=== PATIENT | female | born 1985 | race Caucasian/White ===

== ENCOUNTER 2017-01-21 20:39 | Emergency (ER) | payer SELFPAY | END 2017-01-21 22:14 | disposition left against medical advice (07) | LOC: D.ER 20:39 | DX: M25.572 Pain in left ankle and joints of left foot (principal) ==

== ENCOUNTER 2018-06-02 17:00 | Emergency (ER) | payer SELFPAY ==
[~2018-06-02] VITALS: Ht 167.6 cm; Wt 101.8 kg
[2018-06-02 17:10] VITALS: Ht 167.6 cm; Wt 101.8 kg
[2018-06-02 17:28] LABS: BASOPHILS 0.1 % (0-2); EOSINOPHILS 3.1 % (0-7); HEMATOCRIT 38.1 % (36.0-48.0); HEMOGLOBIN 12.7 g/dL (12-16); IMMATURE GRANULOCYTES 0.2 % (0-5); LYMPHOCYTES 29.8 % (15-50); MCH 28.4 pg (26.0-34.0); MCHC 33.3 g/dL (31.0-37.0); MCV 85.2 fL (80.0-100.0); MEAN PLATELET VOLUME 10.1 fL (7.4-10.4); MONOCYTES 7.8 % (2-11); PLATELET COUNT 270 10x3/uL (130-400); RBC 4.47 10x6/uL (4.00-5.40); RDW 13.5 % (11.5-14.5); WBC 9.8 10x3/uL (4.8-10.8)
[2018-06-02 17:45] LABS: ALBUMIN 2.9 g/dL (3.4-5.0); ALKALINE PHOSPHATASE 61 U/L (46-116); ALT (SGPT) 36 U/L (10-68); BILIRUBIN - TOTAL 0.38 mg/dL (0.2-1.3); CALC OSMOLALITY 279 mosm/kg (275-300); CALCIUM 7.9 mg/dL (8.5-10.1); CHLORIDE - SERUM 107 mmol/L (98-107); CREATININE - SERUM 0.8 mg/dL (0.6-1.3); GLUCOSE 96 mg/dL (74-106); PROTEIN - SERUM 6.4 g/dL (6.4-8.2); SODIUM 141 mmol/L (136-145); UREA NITROGEN 10 mg/dL (7-18); eGFR NON AFRICAN AMERICAN 86 mL/min (90-120)
[2018-06-02 17:49] LABS: AMYLASE - SERUM 52 U/L (25-115); LIPASE 138 U/L (73-393)
[2018-06-02 17:52] LABS: TROPONIN-I < 0.017 ng/mL (0.000-0.060)
[2018-06-02 18:18] LABS: APPEARANCE CLEAR (CLEAR); BILIRUBIN NEGATIVE (NEGATIVE); COLOR YELLOW (YELLOW); GLUCOSE NEGATIVE (NEGATIVE); KETONE NEGATIVE (NEGATIVE); NITRITE NEGATIVE (NEGATIVE); PROTEIN NEGATIVE (NEGATIVE); UROBILINOGEN NORMAL (NORMAL)
[2018-06-02] MEDS ORDERED: LOMOTIL 2.5-0.1 EAC1 PO (19:54)
[2018-06-02 20:13] VITALS: BP 129/72
[2018-06-02 20:16] LABS: HCG URINE NEGATIVE (NEGATIVE)
== END 2018-06-02 20:13 | disposition home or self-care (01) ==
LOC: D.ER 17:00
PROVIDERS: Emergency Medicine
DX: A08.4 Viral intestinal infection, unspecified (principal); F17.200 Nicotine dependence, unspecified, uncomplicated

== ENCOUNTER 2018-10-25 21:17 | Emergency (ER) | payer SELFPAY ==
[~2018-10-25] VITALS: Ht 167.6 cm; Wt 104.5 kg
[~2018-10-25 21:17] MED LIST: LOMOTIL 2.5-0.1 EAC1 PO
[2018-10-25 21:22] VITALS: Ht 167.6 cm; Wt 104.5 kg
[2018-10-25] MEDS ORDERED: PEPCID AC20 MG PO (21:25)
[2018-10-25] MEDS ORDERED: ATIVAN1 MG (21:25)
[2018-10-25] MEDS ORDERED: ROBAXIN500 MG PO (21:26)
[2018-10-25] MEDS ORDERED: NAPROSYN500 MG PO (22:36)
[2018-10-25 23:03] VITALS: BP 135/89
== END 2018-10-25 23:05 | disposition home or self-care (01) ==
LOC: D.ER 21:17
DX: S63.501A Unspecified sprain of right wrist, initial encounter (principal); W18.30XA Fall on same level, unspecified, initial encounter; Y93.89 Activity, other specified; Y92.019 Unspecified place in single-family (private) house as the place of occurrence of the external cause

== ENCOUNTER 2019-03-10 22:41 | Emergency (ER) | payer MEDICAID ==
[~2019-03-10] VITALS: Ht 167.6 cm; Wt 102.3 kg
[~2019-03-10 22:41] MED LIST changes: +ATIVAN1 MG; +NAPROSYN500 MG PO; +PEPCID AC20 MG PO; +ROBAXIN500 MG PO
[2019-03-10 22:46] VITALS: Ht 167.6 cm; Wt 102.3 kg
[2019-03-10 23:01] LABS: BASOPHILS 0.4 % (0-2); EOSINOPHILS 4.4 % (0-7); HEMATOCRIT 37.9 % (36.0-48.0); HEMOGLOBIN 12.7 g/dL (12-16); IMMATURE GRANULOCYTES 0.1 % (0-5); LYMPHOCYTES 41.1 % (15-50); MCH 27.5 pg (26.0-34.0); MCHC 33.5 g/dL (31.0-37.0); MEAN PLATELET VOLUME 10.3 fL (7.4-10.4); MONOCYTES 7.6 % (2-11); NEUTROPHILS 46.4 % (40-80); PLATELET COUNT 231 10x3/uL (130-400); RBC 4.62 10x6/uL (4.00-5.40); RDW 12.9 % (11.5-14.5); WBC 7.1 10x3/uL (4.8-10.8)
[2019-03-10 23:18] LABS: ALBUMIN 3.2 g/dL (3.4-5.0); ALKALINE PHOSPHATASE 84 U/L (46-116); ALT (SGPT) 28 U/L (10-68); BILIRUBIN - TOTAL 0.56 mg/dL (0.2-1.3); CALC OSMOLALITY 282 mosm/kg (275-300); CALCIUM 8.3 mg/dL (8.5-10.1); CHLORIDE - SERUM 107 mmol/L (98-107); CREATININE - SERUM 0.9 mg/dL (0.6-1.3); GLUCOSE 110 mg/dL (74-106); POTASSIUM - SERUM 3.7 mmol/L (3.5-5.1); PROTEIN - SERUM 6.7 g/dL (6.4-8.2); SODIUM 142 mmol/L (136-145); UREA NITROGEN 11 mg/dL (7-18); eGFR NON AFRICAN AMERICAN 75 mL/min (90-120)
[2019-03-10 23:21] LABS: AMYLASE - SERUM 41 U/L (25-115); LIPASE 128 U/L (73-393)
[2019-03-10 23:22] LABS: TROPONIN-I < 0.017 ng/mL (0.000-0.060)
[2019-03-11 00:37] LABS: APPEARANCE HAZY (CLEAR); COLOR YELLOW (YELLOW)
[2019-03-11 00:38] LABS: HCG URINE NEGATIVE (NEGATIVE)
[2019-03-11 00:38] LABS: BACTERIA FEW /hpf (NONE SEEN); BILIRUBIN NEGATIVE (NEGATIVE); GLUCOSE NEGATIVE (NEGATIVE); KETONE NEGATIVE (NEGATIVE); NITRITE NEGATIVE (NEGATIVE); PROTEIN NEGATIVE (NEGATIVE); RED CELLS - URINE NONE SEEN /hpf (0-5); UROBILINOGEN NORMAL (NORMAL); WHITE CELLS - URINE 25-50 /hpf (0-5)
[2019-03-11 01:01] VITALS: BP 132/71
== END 2019-03-11 01:01 | disposition home or self-care (01) ==
LOC: D.ER 22:41
PROVIDERS: Family Medicine
DX: G43.909 Migraine, unspecified, not intractable, without status migrainosus (principal)

== ENCOUNTER 2019-03-20 11:55 | Emergency (ER) | payer MEDICAID ==
[~2019-03-20] VITALS: Ht 167.6 cm; Wt 110.9 kg
[2019-03-20 12:09] VITALS: Ht 167.6 cm; Wt 110.9 kg
[2019-03-20 12:53] LABS: BASOPHILS 0.2 % (0-2); EOSINOPHILS 3.5 % (0-7); HEMOGLOBIN 12.6 g/dL (12-16); IMMATURE GRANULOCYTES 0.1 % (0-5); LYMPHOCYTES 26.6 % (15-50); MCH 27.6 pg (26.0-34.0); MCHC 33.2 g/dL (31.0-37.0); MCV 83.2 fL (80.0-100.0); MEAN PLATELET VOLUME 10.4 fL (7.4-10.4); MONOCYTES 8.7 % (2-11); NEUTROPHILS 60.9 % (40-80); PLATELET COUNT 258 10x3/uL (130-400); RBC 4.57 10x6/uL (4.00-5.40); WBC 8.6 10x3/uL (4.8-10.8)
[2019-03-20 13:08] LABS: ALBUMIN 3.5 g/dL (3.4-5.0); ALKALINE PHOSPHATASE 95 U/L (46-116); ALT (SGPT) 43 U/L (10-68); BILIRUBIN - TOTAL 0.51 mg/dL (0.2-1.3); CALC OSMOLALITY 280 mosm/kg (275-300); CALCIUM 9.1 mg/dL (8.5-10.1); CARBON DIOXIDE 25.2 mmol/L (21.0-32.0); CHLORIDE - SERUM 104 mmol/L (98-107); CREATININE - SERUM 0.8 mg/dL (0.6-1.3); GLUCOSE 98 mg/dL (74-106); POTASSIUM - SERUM 4.1 mmol/L (3.5-5.1); PROTEIN - SERUM 7.5 g/dL (6.4-8.2); SODIUM 139 mmol/L (136-145); UREA NITROGEN 21 mg/dL (7-18); eGFR NON AFRICAN AMERICAN 86 mL/min (90-120)
[2019-03-20] MEDS ORDERED: ZOFRAN ODT4 MG/UDTAB PO (13:36)
[2019-03-20 14:07] VITALS: BP 129/89
[2019-04-05] MEDS ORDERED: KEFLEX500 MG PO (08:05)
[2019-04-05] MEDS ORDERED: MACROBID100 MG PO (08:05)
== END 2019-03-20 14:07 | disposition home or self-care (01) ==
LOC: D.ER 11:55
PROVIDERS: Emergency Medicine
DX: R11.10 Vomiting, unspecified (principal)

== ENCOUNTER 2019-03-31 20:42 | Emergency (ER) | payer MEDICAID ==
[~2019-03-31] VITALS: Ht 167.6 cm; Wt 109.5 kg
[~2019-03-31 20:42] MED LIST changes: +ZOFRAN ODT4 MG/UDTAB PO
[2019-03-31 20:48] VITALS: Ht 167.6 cm; Wt 109.5 kg
[2019-03-31 23:50] VITALS: BP 124/67
[2019-04-05] MEDS ORDERED: MACROBID100 MG PO (08:05)
[2019-04-05] MEDS ORDERED: KEFLEX500 MG PO (08:05)
== END 2019-03-31 23:42 | disposition home or self-care (01) ==
LOC: D.ER 20:42
DX: G43.909 Migraine, unspecified, not intractable, without status migrainosus (principal)

== ENCOUNTER 2019-04-05 21:48 | Emergency (ER) | payer MEDICAID ==
[~2019-04-05] VITALS: Ht 167.6 cm; Wt 111.0 kg
[~2019-04-05 21:48] MED LIST changes: +KEFLEX500 MG PO; +MACROBID100 MG PO
[2019-04-05 22:20] VITALS: Ht 167.6 cm; Wt 111.0 kg
[2019-04-06] MEDS ORDERED: DOXYCYCLINE HY100 M2 PO (00:22)
[2019-04-06] MEDS ORDERED: VALTREX1000 MG PO (00:22)
[2019-04-06 00:55] VITALS: BP 132/88
== END 2019-04-06 00:55 | disposition home or self-care (01) ==
LOC: D.ER 21:48
PROVIDERS: Family Medicine
DX: L02.212 Cutaneous abscess of back [any part, except buttock and flank] (principal)

== ENCOUNTER 2019-04-30 20:34 | Emergency (ER) | payer MEDICAID ==
[~2019-04-30] VITALS: Ht 167.6 cm; Wt 111.8 kg
[~2019-04-30 20:34] MED LIST changes: +DOXYCYCLINE HY100 M2 PO; +VALTREX1000 MG PO
[2019-04-30 21:08] VITALS: Ht 167.6 cm; Wt 111.8 kg
[2019-04-30] MEDS ORDERED: PROZAC40 MG PO (21:10)
[2019-04-30] MEDS ORDERED: NEURONTIN 300300 MG PO (21:11)
[2019-04-30] MEDS ORDERED: BUTALB-APAP-CA1 EACH PO (22:19)
[2019-04-30] MEDS ORDERED: ZOFRAN8 MG PO (22:19)
[2019-04-30 22:58] VITALS: BP 124/49
== END 2019-04-30 22:59 | disposition home or self-care (01) ==
LOC: D.ER 20:34
DX: G43.909 Migraine, unspecified, not intractable, without status migrainosus (principal)

== ENCOUNTER → 2019-06-15 07:09 | Outpatient (CLI) | payer MEDICAID ==
[2019-04-30 21:08] VITALS: BMI 39.8
[~2019-06-15 07:09] MED LIST changes: +ALBUTEROL SULF8.5 GM INH; +BUTALB-APAP-CA1 EACH PO; +NEURONTIN 300300 MG PO; +PROZAC40 MG PO; +ZOFRAN8 MG PO
== END | disposition home or self-care (01) ==
LOC: D.RAD 07:09
PROVIDERS: ATTEND Internal Medicine Gastroenterology
DX: R13.10 Dysphagia, unspecified (principal); R12 Heartburn

== ENCOUNTER 2019-06-20 17:13 | Emergency (ER) | payer MEDICAID ==
[~2019-06-20] VITALS: Ht 167.6 cm; Wt 108.4 kg
[~2019-06-20 17:13] MED LIST changes: -ALBUTEROL SULF8.5 GM INH
[2019-06-20 17:50] VITALS: Ht 167.6 cm; Wt 108.4 kg
[2019-06-20] MEDS ORDERED: ALBUTEROL SULF8.5 GM INH (18:38)
[2019-06-20 19:07] VITALS: BP 128/71
== END 2019-06-20 19:08 | disposition home or self-care (01) ==
LOC: D.ER 17:13
DX: J06.9 Acute upper respiratory infection, unspecified (principal); J40 Bronchitis, not specified as acute or chronic; G47.30 Sleep apnea, unspecified; F32.9 Major depressive disorder, single episode, unspecified; K21.9 Gastro-esophageal reflux disease without esophagitis

== ENCOUNTER 2019-07-18 20:38 | Emergency (ER) | payer MEDICAID ==
[~2019-07-18] VITALS: Ht 167.6 cm; Wt 107.7 kg
[~2019-07-18 20:38] MED LIST changes: +ALBUTEROL SULF8.5 GM INH
[2019-07-18 20:42] VITALS: Ht 167.6 cm; Wt 107.7 kg
[2019-07-18] MEDS ORDERED: OMEPRAZOLE20 M1 PO (20:44)
[2019-07-18 21:31] LABS: APPEARANCE CLEAR (CLEAR); COLOR YELLOW (YELLOW)
[2019-07-18 21:32] LABS: BILIRUBIN NEGATIVE (NEGATIVE); EPITHELIAL CELLS 0-5 /hpf (0-5); GLUCOSE NEGATIVE (NEGATIVE); KETONE NEGATIVE (NEGATIVE); NITRITE NEGATIVE (NEGATIVE); PROTEIN NEGATIVE (NEGATIVE); RED CELLS - URINE OCC /hpf (0-5); SPECIFIC GRAVITY 1.015 (1.005-1.020); UROBILINOGEN NORMAL (NORMAL); WHITE CELLS - URINE 0-5 /hpf (NEGATIVE)
[2019-07-18 21:33] LABS: BACTERIA FEW /hpf (NEGATIVE)
[2019-07-18 21:34] LABS: HCG URINE NEGATIVE (NEGATIVE)
[2019-07-18] MEDS ORDERED: SKELAXIN800 MG PO (21:56)
[2019-07-18 22:09] VITALS: BP 123/85
== END 2019-07-18 22:10 | disposition home or self-care (01) ==
LOC: D.ER 20:38
PROVIDERS: Emergency Medicine
DX: M62.830 Muscle spasm of back (principal); X50.0XXA Overexertion from strenuous movement or load, initial encounter; Y93.9 Activity, unspecified; Y92.9 Unspecified place or not applicable; J45.909 Unspecified asthma, uncomplicated

== ENCOUNTER 2019-08-06 13:55 | Emergency (ER) | payer MEDICAID ==
[~2019-08-06] VITALS: Ht 167.6 cm; Wt 81.8 kg
[~2019-08-06 13:55] MED LIST changes: +OMEPRAZOLE20 M1 PO; +SKELAXIN800 MG PO
[2019-08-06 13:58] VITALS: Ht 167.6 cm; Wt 81.8 kg
[2019-08-06 15:40] VITALS: BP 138/62
== END 2019-08-06 15:41 | disposition home or self-care (01) ==
LOC: D.ER 13:55
DX: G43.909 Migraine, unspecified, not intractable, without status migrainosus (principal); R11.0 Nausea; J45.909 Unspecified asthma, uncomplicated

== ENCOUNTER 2019-08-13 14:21 | Emergency (ER) | payer MEDICAID ==
[~2019-08-13] VITALS: Ht 167.6 cm; Wt 91.4 kg
[2019-08-13 14:46] VITALS: Ht 167.6 cm; Wt 91.4 kg
[2019-08-13] MEDS ORDERED: EC-NAPROSYN500 MG PO (15:28)
[2019-08-13 15:58] VITALS: BP 148/89
== END 2019-08-13 16:00 | disposition home or self-care (01) ==
LOC: D.ER 14:21
DX: S93.402A Sprain of unspecified ligament of left ankle, initial encounter (principal); W01.0XXA Fall on same level from slipping, tripping and stumbling without subsequent striking against object, initial encounter; K21.9 Gastro-esophageal reflux disease without esophagitis

== ENCOUNTER 2019-10-30 10:38 | Emergency (ER) | payer MEDICAID ==
[~2019-10-30] VITALS: Ht 167.6 cm; Wt 118.2 kg
[~2019-10-30 10:38] MED LIST changes: +EC-NAPROSYN500 MG PO; +PRAVACHOL40 MG
[2019-10-30 10:45] VITALS: Ht 167.6 cm; Wt 118.2 kg
[2019-10-30 11:55] VITALS: BP 124/84
== END 2019-10-30 11:58 | disposition home or self-care (01) ==
LOC: D.ER 10:38
DX: G43.909 Migraine, unspecified, not intractable, without status migrainosus (principal); J45.909 Unspecified asthma, uncomplicated; K21.9 Gastro-esophageal reflux disease without esophagitis; F17.210 Nicotine dependence, cigarettes, uncomplicated

== ENCOUNTER 2019-12-02 18:03 | Emergency (ER) | payer MEDICAID ==
[~2019-12-02] VITALS: Ht 167.6 cm; Wt 136.4 kg
[2019-12-02 18:12] VITALS: Ht 167.6 cm; Wt 136.4 kg
[2019-12-02] MEDS ORDERED: BUTALB-APAP-CA1 EACH PO (18:48)
[2019-12-02 19:00] VITALS: BP 133/71
== END 2019-12-02 19:04 | disposition home or self-care (01) ==
LOC: D.ER 18:03
DX: G43.909 Migraine, unspecified, not intractable, without status migrainosus (principal); Z87.898 Personal history of other specified conditions; J45.909 Unspecified asthma, uncomplicated; K21.9 Gastro-esophageal reflux disease without esophagitis

== ENCOUNTER 2019-12-24 12:28 | Emergency (ER) | payer MEDICAID ==
[2019-12-24 12:33] VITALS: Ht 167.6 cm
[2019-12-24 13:08] LABS: BILIRUBIN NEGATIVE (NEGATIVE); GLUCOSE NEGATIVE (NEGATIVE); KETONE NEGATIVE (NEGATIVE); NITRITE NEGATIVE (NEGATIVE); SPECIFIC GRAVITY 1.025 (1.005-1.020); UROBILINOGEN NORMAL (NORMAL)
[2019-12-24 13:10] LABS: BACTERIA MODERATE /hpf (NEGATIVE); EPITHELIAL CELLS 0-5 /hpf (0-5); RED CELLS - URINE 0-5 /hpf (0-5); WHITE CELLS - URINE >50 /hpf (NEGATIVE)
[2019-12-24] MEDS ORDERED: MACROBID100 MG PO (13:24)
[2019-12-24 13:46] VITALS: BP 132/72
== END 2019-12-24 13:47 | disposition home or self-care (01) ==
LOC: D.ER 12:28
PROVIDERS: Family Medicine
DX: N39.0 Urinary tract infection, site not specified (principal); R30.9 Painful micturition, unspecified; J45.909 Unspecified asthma, uncomplicated

== ENCOUNTER 2020-01-23 20:45 | Emergency (ER) | payer MEDICAID ==
[~2020-01-23] VITALS: Ht 167.6 cm; Wt 109.1 kg
[2020-01-23 20:50] VITALS: Ht 167.6 cm; Wt 109.1 kg
[2020-01-23] MEDS ORDERED: IBUPROFEN800 MG PO (21:32)
[2020-01-23 21:47] VITALS: BP 138/70
== END 2020-01-23 21:47 | disposition home or self-care (01) ==
LOC: D.ER 20:45
DX: M25.562 Pain in left knee (principal); J45.909 Unspecified asthma, uncomplicated; Z72.0 Tobacco use; K21.9 Gastro-esophageal reflux disease without esophagitis; M76.9 Unspecified enthesopathy, lower limb, excluding foot

== ENCOUNTER 2020-01-28 22:01 | Emergency (ER) | payer MEDICAID ==
[~2020-01-28] VITALS: Ht 167.6 cm; Wt 124.7 kg
[~2020-01-28 22:01] MED LIST changes: +IBUPROFEN800 MG PO
[2020-01-28 22:10] VITALS: Ht 167.6 cm; Wt 124.7 kg
[2020-01-28 23:03] VITALS: BP 159/89
== END 2020-01-28 23:02 | disposition home or self-care (01) ==
LOC: D.ER 22:01
DX: J02.8 Acute pharyngitis due to other specified organisms (principal); J45.909 Unspecified asthma, uncomplicated; K21.9 Gastro-esophageal reflux disease without esophagitis; Z72.0 Tobacco use

== ENCOUNTER 2020-03-19 18:10 | Emergency (ER) | payer MEDICAID ==
[~2020-03-19] VITALS: Ht 167.6 cm; Wt 110.9 kg
[2020-03-19 18:20] VITALS: Ht 167.6 cm; Wt 110.9 kg
[2020-03-19 19:08] LABS: BASOPHILS 0.4 % (0-2); EOSINOPHILS 4.1 % (0-7); HEMATOCRIT 41.2 % (36.0-48.0); HEMOGLOBIN 13.5 g/dL (12-16); IMMATURE GRANULOCYTES 0.1 % (0-5); LYMPHOCYTES 36.2 % (15-50); MCH 27.5 pg (26.0-34.0); MCHC 32.8 g/dL (31.0-37.0); MCV 83.9 fL (80.0-100.0); MEAN PLATELET VOLUME 10.2 fL (7.4-10.4); MONOCYTES 7.8 % (2-11); NEUTROPHILS 51.4 % (40-80); PLATELET COUNT 239 10x3/uL (130-400); RBC 4.91 10x6/uL (4.00-5.40); RDW 13.4 % (11.5-14.5); WBC 8.4 10x3/uL (4.8-10.8)
[2020-03-19 19:20] LABS: ANION GAP 14.5 mmol/L (8-16); CALCIUM 8.5 mg/dL (8.5-10.1); CARBON DIOXIDE 23.6 mmol/L (21.0-32.0); CREATININE - SERUM 0.9 mg/dL (0.6-1.3); POTASSIUM - SERUM 4.1 mmol/L (3.5-5.1)
[2020-03-19 19:22] LABS: BILIRUBIN NEGATIVE (NEGATIVE); GLUCOSE NEGATIVE (NEGATIVE); KETONE NEGATIVE (NEGATIVE); NITRITE NEGATIVE (NEGATIVE); UROBILINOGEN NORMAL (NORMAL)
[2020-03-19 19:26] LABS: ALBUMIN 3.7 g/dL (3.4-5.0); BILIRUBIN - TOTAL 0.33 mg/dL (0.2-1.3)
[2020-03-19] MEDS ORDERED: BUTALB-APAP-CA1 EACH PO (23:30)
[2020-03-20 00:31] VITALS: BP 118/77
== END 2020-03-20 00:31 | disposition home or self-care (01) ==
LOC: D.ER 18:10
PROVIDERS: Emergency Medicine
DX: G43.909 Migraine, unspecified, not intractable, without status migrainosus (principal); J45.909 Unspecified asthma, uncomplicated; K21.9 Gastro-esophageal reflux disease without esophagitis

== ENCOUNTER 2020-03-25 09:04 | Emergency (ER) | payer MEDICAID ==
[~2020-03-25] VITALS: Ht 167.6 cm; Wt 99.8 kg
[2020-03-25 09:11] VITALS: BP 137/91; Ht 167.6 cm; Wt 99.8 kg
[2020-03-25] MEDS ORDERED: ZOFRAN ODT4 MG/UDTAB PO (09:26)
[2020-03-25] MEDS ORDERED: MAXALT MLT10 MG/TAB PO (09:29)
[2020-03-25 10:06] LABS: BASOPHILS 0.2 % (0-2); EOSINOPHILS 3.9 % (0-7); HEMATOCRIT 40.3 % (36.0-48.0); HEMOGLOBIN 13.1 g/dL (12-16); IMMATURE GRANULOCYTES 0.1 % (0-5); LYMPHOCYTES 25.6 % (15-50); MCH 27.5 pg (26.0-34.0); MCHC 32.5 g/dL (31.0-37.0); MCV 84.5 fL (80.0-100.0); MEAN PLATELET VOLUME 10.4 fL (7.4-10.4); MONOCYTES 6.3 % (2-11); NEUTROPHILS 63.9 % (40-80); PLATELET COUNT 248 10x3/uL (130-400); RBC 4.77 10x6/uL (4.00-5.40); RDW 13.5 % (11.5-14.5)
[2020-03-25 10:07] LABS: CALC OSMOLALITY 281 mosm/kg (275-300); CARBON DIOXIDE 28.6 mmol/L (21.0-32.0); CHLORIDE - SERUM 104 mmol/L (98-107); CREATININE - SERUM 0.8 mg/dL (0.6-1.3); GLUCOSE 118 mg/dL (74-106); POTASSIUM - SERUM 4.1 mmol/L (3.5-5.1); SODIUM 140 mmol/L (136-145); UREA NITROGEN 18 mg/dL (7-18); eGFR NON AFRICAN AMERICAN 85 mL/min (90-120)
[2020-03-25 10:20] LABS: ALBUMIN 3.7 g/dL (3.4-5.0); ALKALINE PHOSPHATASE 114 U/L (30-120); ALT (SGPT) 39 U/L (10-68); BILIRUBIN - TOTAL 0.59 mg/dL (0.2-1.3); PROTEIN - SERUM 7.8 g/dL (6.4-8.2)
[2020-03-25 11:24] LABS: BILIRUBIN NEGATIVE (NEGATIVE); GLUCOSE NEGATIVE (NEGATIVE); KETONE NEGATIVE (NEGATIVE); NITRITE NEGATIVE (NEGATIVE); UROBILINOGEN NORMAL (NORMAL)
== END 2020-03-25 10:04 | disposition home or self-care (01) ==
LOC: D.ER 09:04
PROVIDERS: Family Medicine
DX: R51 Headache (principal); K21.9 Gastro-esophageal reflux disease without esophagitis; J45.909 Unspecified asthma, uncomplicated

== ENCOUNTER 2020-04-07 10:47 | Emergency (ER) | payer MEDICAID ==
[~2020-04-07] VITALS: Ht 167.6 cm; Wt 104.5 kg
[~2020-04-07 10:47] MED LIST changes: +MAXALT MLT10 MG/TAB PO
[2020-04-07 11:01] VITALS: Ht 167.6 cm; Wt 104.5 kg
[2020-04-07] MEDS ORDERED: FLORASTOR250 MG PO (13:13)
[2020-04-07] MEDS ORDERED: KEFLEX500 MG PO (13:13)
[2020-04-07] MEDS ORDERED: DICLOFENAC SODI50 MG PO (13:13)
[2020-04-07] MEDS ORDERED: CLEOCIN HCL300 MG PO (13:13)
[2020-04-07 13:31] VITALS: BP 121/62
== END 2020-04-07 13:31 | disposition home or self-care (01) ==
LOC: D.ER 10:47
DX: L02.416 Cutaneous abscess of left lower limb (principal); J45.909 Unspecified asthma, uncomplicated; Z72.0 Tobacco use; K21.9 Gastro-esophageal reflux disease without esophagitis

== ENCOUNTER 2020-05-15 22:28 | Emergency (ER) | payer MEDICAID ==
[~2020-05-15] VITALS: Ht 167.6 cm; Wt 131.8 kg
[~2020-05-15 22:28] MED LIST changes: +CLEOCIN HCL300 MG PO; +DICLOFENAC SODI50 MG PO; +FLORASTOR250 MG PO
[2020-05-15 22:36] VITALS: Ht 167.6 cm; Wt 131.8 kg
[2020-05-15] MEDS ORDERED: ZOFRAN ODT4 MG/UDTAB PO (23:24)
[2020-05-15 23:57] VITALS: BP 140/98
== END 2020-05-15 23:58 | disposition home or self-care (01) ==
LOC: D.ER 22:28
DX: G43.909 Migraine, unspecified, not intractable, without status migrainosus (principal); R11.2 Nausea with vomiting, unspecified; J45.909 Unspecified asthma, uncomplicated

== ENCOUNTER 2020-10-30 17:33 | Emergency (ER) | payer MEDICAID ==
[~2020-10-30] VITALS: Ht 167.6 cm; Wt 114.5 kg
[2020-10-30 17:38] VITALS: BP 151/99; Ht 167.6 cm; Wt 114.5 kg
[2020-10-30] MEDS ORDERED: NAPROSYN500 MG PO (18:00)
[2020-10-30] MEDS ORDERED: CLEOCIN HCL300 MG PO (18:00)
[2020-10-30] MEDS ORDERED: ORAL ANALGESIC9 GM TOPICAL (18:00)
== END 2020-10-30 18:26 | disposition home or self-care (01) ==
LOC: D.ER 17:33
DX: K08.89 Other specified disorders of teeth and supporting structures (principal); R51.9 Headache, unspecified

== ENCOUNTER 2020-12-09 21:50 | Emergency (ER) | payer MEDICAID ==
[~2020-12-09] VITALS: Ht 167.6 cm; Wt 117.3 kg
[~2020-12-09 21:50] MED LIST changes: +ORAL ANALGESIC9 GM TOPICAL
[2020-12-09 21:59] VITALS: Ht 167.6 cm; Wt 117.3 kg
[2020-12-09] MEDS ORDERED: ZESTRIL10 MG PO (22:02)
[2020-12-09 22:48] LABS: BASOPHILS 0.2 % (0-2); EOSINOPHILS 2.5 % (0-7); HEMATOCRIT 36.6 % (36.0-48.0); HEMOGLOBIN 12.1 g/dL (12-16); IMMATURE GRANULOCYTES 0.2 % (0-5); LYMPHOCYTE ABS# 4.01 10x3/uL (1.18-3.74); LYMPHOCYTES 39.4 % (15-50); MCH 26.9 pg (26.0-34.0); MCHC 33.1 g/dL (31.0-37.0); MCV 81.5 fL (80.0-100.0); MEAN PLATELET VOLUME 10.5 fL (7.4-10.4); MONOCYTES 5.3 % (2-11); NEUTROPHIL ABS# 5.33 10x3/uL (1.56-6.13); NEUTROPHILS 52.4 % (40-80); PLATELET COUNT 284 10x3/uL (130-400); RBC 4.49 10x6/uL (4.00-5.40); RDW 13.1 % (11.5-14.5); WBC 10.2 10x3/uL (4.8-10.8)
[2020-12-09 22:57] LABS: HCG SERUM NEGATIVE (NEGATIVE)
[2020-12-09 22:58] LABS: ANION GAP 12.2 mmol/L (8-16); CALCIUM 8.4 mg/dL (8.5-10.1); CARBON DIOXIDE 26.3 mmol/L (21.0-32.0); POTASSIUM - SERUM 3.5 mmol/L (3.5-5.1)
[2020-12-09 23:04] LABS: ALBUMIN 3.7 g/dL (3.4-5.0); BILIRUBIN - TOTAL 0.46 mg/dL (0.2-1.3); PROTEIN - SERUM 7.7 g/dL (6.4-8.2)
[2020-12-09 23:37] VITALS: BP 132/78
== END 2020-12-09 23:37 | disposition home or self-care (01) ==
LOC: D.ER 21:50
PROVIDERS: Family Medicine
DX: T78.3XXA Angioneurotic edema, initial encounter (principal); I10 Essential (primary) hypertension

== ENCOUNTER 2021-01-08 19:43 | Emergency (ER) | payer MEDICAID ==
[~2021-01-08] VITALS: Ht 167.6 cm; Wt 115.0 kg
[~2021-01-08 19:43] MED LIST changes: +ZESTRIL10 MG PO
[2021-01-08 20:18] VITALS: BP 175/104; Ht 167.6 cm; Wt 115.0 kg
== END 2021-01-08 21:05 | disposition home or self-care (01) ==
LOC: D.ER 19:43
DX: M25.532 Pain in left wrist (principal); S63.502A Unspecified sprain of left wrist, initial encounter; I10 Essential (primary) hypertension; W19.XXXA Unspecified fall, initial encounter; Y93.9 Activity, unspecified; Y92.9 Unspecified place or not applicable